=== PATIENT | male | born 1970 | race Hispanic/Latino ===

== ENCOUNTER 2018-11-13 16:11 | Emergency (ER) | payer SELFPAY ==
[~2018-11-13] VITALS: Ht 180.3 cm; Wt 99.8 kg
--- OUTSIDE RECORDS SUMMARY | 2018-11-13 16:14 | XMS REPORT ---
Author Author [facility] Address Unknown Phone Unavailable Care Team Providers Care Director Print Name Role Phone Unavailable Unavailable Problems This patient has no known problems. Allergies, Adverse Reactions, Alerts This patient has no known allergies or adverse reactions. Medications This patient has no known medications. Results Test Description Test Time Test Comments Text Results Atomic Results Result Comments URINALYSIS 2017-09-04 18:40:00 GLUCOSE (test code=URGLU) 500 MG/DL NEG-100 BILIRUBN (test code=URBILI) NEGATIVE NEGATIVE KETONE (test code=URKET) NEGATIVE MG/DL NEGATIVE BLOOD (test code=URBLD) NEGATIVE UR PH (test code=URPH) 6.0 5.0-7.5 PROTEIN (test code=URPRO) NEGATIVE MG/DL NEGATIVE NITRITES (test code=URNIT) NEGATIVE NEGATIVE UROBILINGEN (test code=URURO) 0.2 EU/DL 0.2-1.0 LEUKOCYT (test code=URLEU) NEGATIVE NEGATIVE UA COLOR (test code=UA COLOR) YELLOW YELLOW CLARITY (test code=CLARITY) SLIGHTLY CLOUDY CLEAR SP GRAV (test code=URSPGRAV) 1.025 1.000-1.025 UAMICRO (test code=UAMICRO) NO [id number] 18:31:00* Test Item Value Reference Range Comments SODIUM (test code=NA) 137 MMOL/L 137-145 K+ (test code=KSERUM) 4.2 MMOL/L 3.5-5.1 PLEASE NOTE NEW REFERENCE RANGE(S) IN EFFECT EFFECTIVE 09/15/2009 - NEW ANALYZER ([facility] 5600) CHLORIDE (test code=CL) 104 MMOL/L 98-107 CO2 (test code=CO2) 21 MMOL/L 22-30 BUN (test code=BUN) 11 MG/DL 9-20 CREA (test code=CREA) 0.7 MG/DL 0.8-1.5 GLUCOSE (test code=GLUCOSE) 159 MG/DL 70-99 Fasting glucose normal <100 MG/DL- [employer] recommendation CALCIUM (test code=CABLOOD) 9.8 MG/DL 8.4-10.2 TOTPROT (test code=TOTPROT) 8.0 G/DL 6.3-8.2 ALBUMIN (test code=ALBSERUM) 4.6 G/DL 3.5-5.0 BILITOT (test code=BILITOT) 0.7 MG/DL 0.2-1.3 AST (test code=AST) 42 U/L 15-46 PHOSALK (test code=PHOSALK) 61 U/L 38-126 ALT (test code=ALT) 68 U/L 13-69 GFR (test code=GFR) 129 mL/min/1.73m2 A GFR of >90 mL/min/1.73m2 is considered normal. TROPONIN I - [id number] 18:13:00* Test Item Value Reference Range Comments TROP-I (test code=TROP-I) <0.012 ng/ml 0.012-0.033 INTERPRETIVE DATA A TROPONIN OF LESS THAN 0.034 NG/ML IS CONSIDERED NEGATIVE A TROPONIN OF 0.034 - 0.119 NG/ML IS CONSIDERED GRAYZONE A TROPONIN=/> 0.120 NG/ML IS CONSIDERED POSITIVE [id number] 17:46:00* Test Item Value Reference Range Comments WBC (test code=WBC) 6.4 K/UL 3.5-10.9 RBC (test code=RBC) 5.02 M/UL 4.3-5.7 HGB (test code=HGB) 16.1 G/DL 13.0-17.9 HCT (test code=HCT) 47.4 % 38-52 MCV (test code=MCV) 94.4 FL 80-98 MCH (test code=MCH) 32.1 PG 28-32 MCHC (test code=MCHC) 34.0 G/DL 32.5-36.5 RDW (test code=RDW) 12.4 % 11.5-14.5 PLT (test code=PLT) 239 K/UL 150-450 MPV (test code=MPV) 9.6 FL 7.4-10.4 MANDIFF (test code=MANDIFF) NO SCAN (test code=SCAN) NO NEUT% (test code=NEUT%) 82.0 % 40-75 LYMPH% (test code=LYMPH%) 11.8 % 24-44 MONO% (test code=MONO%) 5.3 % 0-13 EOS% (test code=EOS%) 0.2 % 0-4 BASO % (test code=BASO%) 0.2 % 0-2 IG% (test code=IG%) 0.5 % 0-1 IG%=Metamyelocytes, Myelocytes, and Promyelocytes. (Immature neutrophils not including "bands".) > 3% IG indicates risk of sepsis NRBC% (test code=NRBC%) 0 /100 WBC ABS NEUT (test code=NEUT) 5.2 K/UL 1.2-7.2 CHEST 1 VIEW [id number] 14:17:[address] [id number] IMAGING REPORTPatient Name: Radha MONTENEGRO of Service: [id number]: 46 Sex: M Order #: [id number] Room: [facility]: 1970 X-Ray Number: [id number] Record Number: [id number] Hospital Number: [id number] Physician: JAYLEN ALEXANDEROrdering Physician: STONEY MURO PORTABLE CHEST at 1424 hours September 04, 2017:CLINICAL HISTORY: Cough and congestionTECHNIQUE: One viewFINDINGS: The heart and vascularity are within normal limits and the lungsare clear.The bony thorax is intact.Impression: Normal chestElectronically Signed By: Jame James M.D., 09/04/2017 2:15 PMLegally authenticated by WARREN Lemon 2017-09-04 14:15:28
[2018-11-13] MEDS ORDERED: ASPIRIN 81 MG CHEW TAB PO ONE (16:30)
[2018-11-13 16:55] LABS: BILIRUBIN,URINE NEGATIVE (NEGATIVE); CLARITY,URINE CLEAR (CLEAR); COLOR,URINE YELLOW (YELLOW); KETONES,URINE NEGATIVE (NEGATIVE); LEUKOCYTE ESTERASE ,URINE NEGATIVE (NEGATIVE); NITRITE,URINE NEGATIVE (NEGATIVE); PROTEIN,URINE DIPSTICK NEGATIVE (NEGATIVE); URINE UROBILINOGEN 0.2 mg/dL (0.2 - 1)
--- NOTE | 2018-11-13 17:16 | Diagnostic Imaging Report ---
Chest, 1 view, 11/13/2018. History: Chest pain. Comparison: None available. Findings: The cardiomediastinal silhouette and pulmonary vasculature are within normal limits for a portable exam. There is no focal consolidation or pleural effusion. There is mild elevation of the right hemidiaphragm. There are no acute osseous or soft tissue abnormalities. Impression: No acute cardiopulmonary abnormality. Signed by: Adam Dorado on 11/13/2018 5:13 PM
[2018-11-13 17:18] LABS: EPITHELIAL CELLS,URINE RARE /LPF
[2018-11-13 17:33] LABS: BASOPHILS % 0.4 % (0.0-1.0); EOSINOPHILS # (AUTO) 0.1 (0.0-0.4); EOSINOPHILS % 0.6 % (0.0-6.0); HEMATOCRIT 47.2 % (38.2-49.6); HEMOGLOBIN 16.3 g/dL (14.0-18.0); LYMPHOCYTES % 24.5 % (18.0-39.1); MEAN CORPUSCULAR HEMOGLOBIN 32.2 pg (28-32); MEAN CORPUSCULAR HGB CONC 34.5 g/dL (31-35); MEAN CORPUSCULAR VOLUME 93.3 fL (81-99); MONOCYTES # (AUTO) 1.4 (0.2-0.8); MONOCYTES % 17.9 % (4.4-11.3); NEUTROPHILS # (AUTO) 4.5 (2.1-6.9); NEUTROPHILS % 56.1 % (38.7-80.0); PLATELET COUNT 233 x10e3/uL (140-360); RED BLOOD COUNT 5.06 x10e6/uL (4.3-5.7); RED CELL DISTRIBUTION WIDTH 12.5 % (11.7-14.4)
[2018-11-13 17:52] LABS: ALANINE AMINOTRANSFERASE 71 IU/L (0-55); ALBUMIN 3.7 g/dL (3.5-5.0); ALBUMIN/GLOBULIN RATIO 0.9 (0.8-2.0); ALKALINE PHOSPHATASE 55 IU/L (40-150); ANION GAP 11.7 mmol/L (8-16); BLOOD UREA NITROGEN 7 mg/dL (7-26); BUN/CREATININE RATIO 9 (6-25); CALCIUM 9.3 mg/dL (8.4-10.2); CARBON DIOXIDE 27 mmol/L (22-29); CHLORIDE 101 mmol/L (98-107); CREATINE KINASE 197 IU/L (30-200); CREATININE, SERUM 0.75 mg/dL (0.72-1.25); EST GLOMERULAR FILTRATION RATE > 60 ML/MIN (60-); GLUCOSE 94 mg/dL (74-118); POTASSIUM 3.7 mmol/L (3.5-5.1); SODIUM 136 mmol/L (136-145)
[2018-11-13 17:53] LABS: INR 0.92; PROTHROMBIN TIME 12.8 seconds (11.9-14.5)
[2018-11-13 17:54] LABS: PARTIAL THROMBOPLASTIN TIME 25.7 seconds (23.8-35.5)
[2018-11-13] MEDS ORDERED: CLONIDINE HCL 0.1 MG TAB PO ONE (18:45)
[2018-11-13] MEDS ORDERED: ACETAMINOPHEN 325 MG TAB PO ONE (18:45)
== END 2018-11-13 19:12 | disposition home or self-care (01) ==
LOC: ER 16:11
DX: R07.89 Other chest pain (principal); I10 Essential (primary) hypertension
CPT/HCPCS: 36415; 71045; 80053; 81001; 82550; 82553; 84484; 85025; 85610; 85730; 93005

== ENCOUNTER 2019-01-03 18:52 | Emergency (ER) | payer OTHER ==
[~2019-01-03] VITALS: Ht 180.3 cm; Wt 112.0 kg
[2019-01-03] MEDS ORDERED: IOPAMIDOL 370 MG/ML 200 ML INFUS..BTL INJ ONE (19:34)
[2019-01-03] MEDS ORDERED: SODIUM CHLORIDE 0.9% 50ML 0 ML ONE (19:34)
[2019-01-03] MEDS ORDERED: KETOROLAC TROMETHAMINE 30 MG/ML VIAL ONE (19:52)
[2019-01-03] MEDS: KETOROLAC TROMETHAMINE 30 MG/ML VIAL IV STA (19:52)
--- NOTE | 2019-01-03 22:51 | Diagnostic Imaging Report ---
EXAM: CT Abdomen and Pelvis WITHOUT contrast INDICATION: Bilateral flank pain COMPARISON: Chest radiograph 11/13/2018. TECHNIQUE: Abdomen and pelvis were scanned utilizing a multidetector helical scanner from the lung base to the pubic symphysis without administration of IV contrast. Absence of intravenous contrast decreases sensitivity for detection of focal lesions and vascular pathology. Coronal and sagittal reformations were obtained. Routine protocol was performed. IV CONTRAST: None ORAL CONTRAST: None COMPLICATIONS: None RADIATION DOSE: Total DLP: 936 mGy*cm Estimated effective dose: (DLP x 0.015 x size factor) mSv CTDIvol has been reviewed. It is below the limits set by the Radiation Protocol Committee (RPC). Dose modulation, iterative reconstruction, and/or weight based adjustment of the mA/kV was utilized to reduce the radiation dose to as low as reasonably achievable. FINDINGS: LINES and TUBES: None. LOWER THORAX: Elevated right hemidiaphragm with bibasilar atelectasis. Left anterior descending coronary artery calcifications. HEPATOBILIARY: The liver is diffusely hypodense No focal hepatic lesions. No biliary ductal dilation. GALLBLADDER: No radio-opaque stones or sludge. No wall thickening. SPLEEN: No splenomegaly. A 1.6 cm benign peripherally calcified cyst in the spleen. PANCREAS: No focal masses or ductal dilatation. ADRENALS: No adrenal nodules KIDNEYS/URETERS: No hydronephrosis. No cystic or solid mass lesions. No stones. GI TRACT: No abnormal distention, wall thickening, or evidence of bowel obstruction. Small hiatal hernia. There are diverticula within the colon without evidence of diverticulitis. Appendix is normal. PELVIC ORGANS/BLADDER: Urinary bladder under distended otherwise unremarkable. LYMPH NODES: No lymphadenopathy. VESSELS: Unremarkable. PERITONEUM / RETROPERITONEUM: No free air or fluid. BONES: There are degenerative changes in the lumbar spine. Right L5 transverse process/right sacral pseudoarthrosis. SOFT TISSUES: Unremarkable. IMPRESSION: 1. Colonic diverticulosis without evidence of diverticulitis. 2. Hepatic steatosis. 3. Left main anterior descending coronary artery calcifications. 4. Small hiatal hernia. Signed by: Aureliano Black DO on 01/03/2019 10:48 PM
[2019-01-03] MEDS ORDERED: MORPHINE SULFATE INJ 4 MG/ML INJ 1ML ONE (23:03)
[2019-01-03] MEDS ORDERED: ONDANSETRON HCL INJ 2MG/ML 2ML 2 MG/ML VIAL ONE (23:03)
[2019-01-03] MEDS: MORPHINE SULFATE INJ 4 MG/ML INJ 1ML IV PRN (23:07)
[2019-01-03] MEDS: ONDANSETRON HCL INJ 2MG/ML 2ML 2 MG/ML VIAL IV STA (23:07)
[2019-01-03 23:27] VITALS: BP 138/74
== END 2019-01-03 23:30 | disposition home or self-care (01) ==
LOC: FSED 18:52
DX: R10.11 Right upper quadrant pain (principal); R10.31 Right lower quadrant pain; K57.90 Diverticulosis of intestine, part unspecified, without perforation or abscess without bleeding; K76.0 Fatty (change of) liver, not elsewhere classified; I25.10 Atherosclerotic heart disease of native coronary artery without angina pectoris; K44.9 Diaphragmatic hernia without obstruction or gangrene
CPT/HCPCS: 74176; 80053; 81003; 87400; 99283; J1885; J2270; J2405; Q9967